=== PATIENT | female | born 1995 | race African-American/Black ===

== ENCOUNTER 2019-03-26 14:26 | Emergency (ER) | payer OTHER ==
[2019-03-26] MEDS ORDERED: predniSONE 20 MG TABLET (UD) PO ONE (14:31)
--- NOTE | 2019-03-26 14:31 | PDOC ---
Rapid Medical Evaluation Time Seen by Provider: 03/26/19 14:28 Medical Evaluation: 03/26/19 14:28 CC: SOB- h/o asthma with ETT x2 most recently 2018 PE: I&E wheezing all [place] Orders: nebs, prednisone Pt will proceed to ER for further evaluation. Discharge Disposition - Diagnosis SOB (shortness of breath) - Referrals - Patient Instructions - Post Discharge Activity
[2019-03-26 14:35] VITALS: BP 100/60; PULSE 97; TEMP 98.5; BMI 41.5
[2019-03-26] MEDS: ALBUTEROL SO4 2.5/IPRATROPIUM 0.5 INH SOL 3 ML VIAL.NEB. NEB SCH ×3 (15:05→15:30)
[2019-03-26] MEDS ORDERED: ALBUTEROL SO4 2.5/IPRATROPIUM 0.5 INH SOL 3 ML VIAL.NEB. NEB ONE (15:20)
[2019-03-26] MEDS ORDERED: predniSONE 20 MG TABLET (UD) ONE ×2 (15:20→15:21)
--- NOTE | 2019-03-26 16:34 | PDOC ---
History of Present Illness - General Chief Complaint: Asthma Stated Complaint: ASTHMA Time Seen by Provider: 03/26/19 14:28 History Source: Patient Exam Limitations: No Limitations - History of Present Illness Initial Comments: 03/26/19 15:38 23-year-old Female presents to ED with complaints of wheezing, shortness of breath for the past 2 days. Patient states ran out of her Symbicort and has been using her albuterol rescue inhaler with minimal improvement. Patient denies chest pain, fever, chills, recent travel recent illness. Patient states was intubated twice in the past last episode in 2018. Patient denies smoking history. Is this a multiple visit Asthma Patient?: No Timing/Duration: reports: getting worse Severity: reports: moderate Possible Cause: Yes: occasional episodes Modifying Factors: improves with: coughing Associated Symptoms: reports: cough, shortness of breath, wheezing Past History - Travel Traveled outside of the country in the last 30 days: Yes - Past Medical History Allergies/Adverse Reactions: Allergies Allergy/AdvReac Type Severity Reaction Status Date / Time No Known Allergies Allergy Verified 03/26/19 15:17 Home Medications: Ambulatory Orders Albuterol Sulfate Inhaler - [Ventolin HFA Inhaler -] 1 - 2 inh PO QID PRN #1 inhaler 03/26/19 Budesonide/Formeterol Fumarate [SYMBICORT 160/4.5mcg -] 1 inh PO BID #1 cannister 03/26/19 predniSONE [Deltasone -] 40 mg PO DAILY #6 tablet 03/26/19 Asthma: Yes COPD: No - Psycho Social/Smoking Cessation Hx Smoking History: Current some day smoker Have you smoked in the past 12 months: Yes Information on smoking cessation initiated: Yes Hx Alcohol Use: No Drug/Substance Use Hx: No Patient Lives Alone: No Lives with/in: parents Review of Systems - Review of Systems Able to Perform ROS?: Yes Constitutional: No: Symptoms Reported HEENTM: No: Symptoms Reported Respiratory: Yes: Cough, Shortness of Breath, Wheezing Cardiac (ROS): No: Symptoms Reported ABD/GI: No: Symptoms Reported : No: Symptoms Reported Musculoskeletal: No: Symptoms Reported Integumentary: No: Symptoms Reported Neurological: No: Symptoms reported Hematologic/Lymphatic: No: Symptoms Reported *Physical Exam - Vital Signs Last Vital Signs Temp Pulse Resp BP Pulse Ox 98.5 F 97 H 20 100/60 96 03/26/19 14:31 03/26/19 14:31 03/26/19 14:31 03/26/19 14:31 03/26/19 14:31 - Physical Exam General Appearance: Yes: Nourished, Appropriately Dressed. No: Apparent Distress HEENT: positive: Pharynx Normal. negative: Pale Conjunctivae Neck: positive: Normal Thyroid Respiratory/Chest: positive: Wheezing (mild expiratory to right upper base anteriorly). negative: Respiratory Distress, Accessory Muscle Use Cardiovascular: positive: Regular Rhythm, Regular Rate. negative: Murmur Gastrointestinal/Abdominal: positive: Soft. negative: Tenderness Integumentary: positive: Normal Color, Warm, Moist Neurologic: positive: Motor Strength 5/5 (ambulatory) ED Treatment Course - Medications Given in the ED: ED Medications Discontinued Medications Generic Name Dose Route Start Last Admin Trade Name Freq PRN Reason Stop Dose Admin Albuterol/Ipratropium 1 amp 03/26/19 14:45 03/26/19 15:30 Duoneb - NEB 03/26/19 15:31 1 amp Q15M CRISTOBAL Administration Prednisone 60 mg 03/26/19 14:31 03/26/19 15:05 Deltasone - PO 03/26/19 14:32 60 mg ONCE ONE Administration Medical Decision Making - Medical Decision Making 03/26/19 15:43 Chief complaint: Cough wheezing or shortness of breath patient ran out of her Symbicort and came here for refill and treatment Exam patient with expiratory wheeze to right upper lobe anteriorly patient was given nebulizer treatment prior to my exam in E Plan patient to receive nebulizer and will reevaluate shortly 03/26/19 16:45 Lungs clear to auscultation bilaterally. Patient to be discharged home. Refills given Discharge - Discharge Information Problems reviewed: Yes Clinical Impression/Diagnosis: SOB (shortness of breath), Asthma exacerbation Condition: Improved Disposition: HOME - Additional Discharge Information Prescriptions: Albuterol Sulfate Inhaler - [Ventolin HFA Inhaler -] 1 - 2 inh PO QID PRN #1 inhaler PRN Reason: Wheezing Budesonide/Formeterol Fumarate [SYMBICORT 160/4.5mcg -] 1 inh PO BID #1 cannister predniSONE [Deltasone -] 40 mg PO DAILY #6 tablet - Follow up/Referral - Patient Discharge Instructions Patient Printed Discharge Instructions: Asthma -- Adult Additional Instructions: Start prednisone tomorrow 40 mg as discussedsince you were given your first dose here in the ER. Please use your Symbicort twice a day as prescribed and use your albuterol inhaler only as needed for severe wheezing or shortness of breath. If symptoms continue despite above recommendations please return to ED. Otherwise up with her primary care physician. - Post Discharge Activity
== END 2019-03-26 16:30 | disposition home or self-care (01) ==
LOC: JER 14:26
PROC: 3E0F7GC Introduction of Other Therapeutic Substance into Respiratory Tract, Via Natural or Artificial Opening (ICD-10-PCS; principal; 2019-03-26)
DX: J45.901 Unspecified asthma with (acute) exacerbation (principal)
CPT/HCPCS: 94640; 99281-25